=== PATIENT | male | born 1945 | race Caucasian/White ===

== ENCOUNTER 2018-06-25 11:48 | Emergency (ER) | payer MEDICARE, OTHER ==
[2018-06-25 12:01] VITALS: BP 146/74
[2018-06-25] MEDS ORDERED: SILVER SULFADIAZINE CREAM 25 GM TUBE TOP STA (12:24)
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
== END 2018-06-25 12:40 | disposition home or self-care (01) ==
LOC: ED 11:48
DX: T22.211A Burn of second degree of right forearm, initial encounter (principal); T22.232A Burn of second degree of left upper arm, initial encounter; X08.8XXA Exposure to other specified smoke, fire and flames, initial encounter; Y93.89 Activity, other specified; Y92.009 Unspecified place in unspecified non-institutional (private) residence as the place of occurrence of the external cause
CPT/HCPCS: 99283; A9270

== ENCOUNTER 2021-01-21 23:43 | Outpatient (CLI) | payer MEDICARE, OTHER | END 2021-01-21 23:44 | disposition EMS.NT | LOC: EMS 23:43 | DX: T44.0X1A Poisoning by anticholinesterase agents, accidental (unintentional), initial encounter (principal); R00.1 Bradycardia, unspecified ==